=== PATIENT | female | born 1955 | race Caucasian/White ===

== ENCOUNTER 2024-11-13 11:46 | Outpatient (CLI) | payer OTHER, MEDICAID, SELFPAY ==
--- NOTE | 2024-11-13 11:23 | DI.RAD_ITS ---
Exam(s) XR WRIST RT LIMITED EXAM: XR WRIST RT LIMITED CLINICAL HISTORY: F/U FRACTURE. TECHNIQUE: 2D digital imaging was performed. COMPARISON: CR Hand 3 vw Min RT from 11/04/2024 FINDINGS: Two views-AP and lateral Again noted is fracture of the distal radius some impaction and the fracture approaches the radiocarp al joint surface medially. There is also a nondisplaced fracture of the base of the ulnar styloid ag ain noted. Scaphoid and scapholunate distance are normal. No carpal dislocation. There are advance d degenerative changes again noted in the 1st carpometacarpal joint. IMPRESSION: Distal radius fracture and ulnar styloid fracture again noted. Appearance is similar to outside imag es of 11/04/2024. DATA REPOSITORY: RADIATION DOSE DELIVERED:
== END 2024-11-13 11:47 | disposition home or self-care (01) ==
LOC: DIORS 11:46
PROVIDERS: PCP Family Medicine; Visit Provider Student in an Organized Health Care Education/Training Program
DX: S52.501A Unspecified fracture of the lower end of right radius, initial encounter for closed fracture (principal)
CPT/HCPCS: 73100